=== PATIENT | female | born 1935 | race Caucasian/White ===

== ENCOUNTER → 2018-06-19 | Outpatient (CLI) | payer OTHER ==
[~2018-06-19] MED LIST: ADULT LOW DOSE81 MG PO; CALCIUM 500 +1 EAC5 PO; CALCIUM PO; CIPRO500 MG PO; CIPROFLOXACIN500 M1 PO; CRANBERRY TABL1 EACH PO; DAILY MULTIPLE1 EACH PO; FISH OIL 1,0001 EAC5 PO; FLAGYL500 MG PO; GLUCOPHAGE500 MG PO; GLUCOSAMINE HC500 MG PO; GLYBURIDE 5 MG T5 M1 PO; HYDROCODONE-AP1 EAC6 PO; IBUPROFEN 600600 M1 PO; IBUPROFEN 800800 M1 PO; LORTABELXR PO; MAGNESIUM OXID400 MG PO; MAGNESIUM100 MG PO; MOBIC15 MG PO; MSM1000 M1 PO; MULTIVITAMIN/IRON PO; SIMVASTATIN40 MG PO; TORADOL 10 MG T10 MG PO; VITAMIN D1000 UNI1 PO; VITAMIN D400 UNI1 PO; ZINC50 M1 PO; ZOFRAN ODT4 MG PO; ZPAK PO
[2018-06-19 09:00] LABS: CHOLESTEROL 160 mg/dL (<200); HDL CHOLESTEROL 52 mg/dL (>40); LDL CHOLESTEROL 72 mg/dL (<100); TC:HDL 3.1 Ratio (Not establshd); TRIGLYCERIDE 181 mg/dL (<150); VLDL 36 mg/dL (<40)
[2018-06-19 09:08] LABS: SERUM ASSESSMENT Clear
== END ==
LOC: M.LAB 08:12
PROVIDERS: Internal Medicine Cardiovascular Disease
DX: E78.00 Pure hypercholesterolemia, unspecified (principal); M19.90 Unspecified osteoarthritis, unspecified site; E11.9 Type 2 diabetes mellitus without complications

== ENCOUNTER → 2019-07-29 | Outpatient (CLI) | payer OTHER ==
[2019-07-29 09:42] LABS: CHOLESTEROL 137 mg/dL (<200); HDL CHOLESTEROL 47 mg/dL (>40); LDL CHOLESTEROL 59 mg/dL (<100); TC:HDL 2.9 Ratio (Not establshd); TRIGLYCERIDE 156 mg/dL (<150); VLDL 31 mg/dL (<40)
[2019-07-29 09:44] LABS: SERUM ASSESSMENT Clear
== END ==
LOC: M.LAB 09:13
PROVIDERS: Internal Medicine Cardiovascular Disease
DX: E78.00 Pure hypercholesterolemia, unspecified (principal)

== ENCOUNTER → 2021-08-23 | Outpatient (CLI) | payer OTHER ==
--- NOTE | 2021-08-23 14:25 | 2DMMODE ---
[place] [address] 2 D/M-MODE ECHOCARDIOGRAM Name: SEAN JOHN Room: [facility]#: [id number] Admission: 08/23/21 Attend Phys: Jens Felix, Discharge: Date of : 31 Date of Service: 08/23/21 1425 Report #: [id number] THIS REPORT FOR: cc: Traas Soliman John E. DO Blick,Elia Khan MD [facility] ~ APPROVED REPORT Study performed: 08/23/2021 12:10:10 EXAM: Comprehensive 2D, Doppler, and color-flow Echocardiogram Patient Location: Out-Patient BSA: 1.83 HR: 62 bpm BP: 125/70 mmHg Other Information Study Quality: Good Indications CVA/TIA Echo Enhancing Agent Comments: Was unable to start IV for Bubble Study. 5X 2D Dimensions IVSd: 11.23 (7-11mm) LVOT Diam: 20.39 (18-24mm) LVDd: 46.92 mm PWd: 9.65 (7-11mm) Ascending Ao: 32.58 (22-36mm) LVDs: 29.16 (25-40mm) Aortic Root: 31.86 mm Volumes Left Atrial Volume (Systole) LA ESV Index: 37.20 mL/m2 Aortic Valve AoV Peak Judson.: 1.89 m/s AO Peak Gr.: 14.36 mmHg LVOT Max P.23 mmHg AO Mean Gr.: 8.08 mmHg LVOT Mean P.90 mmHg LVOT Max V: 1.34 m/s AO V2 VTI: 38.52 cm LVOT Mean V: 0.93 m/s JOCELYN (VTI): 2.40 cm2 LVOT V1 VTI: 28.30 [place] [address] 2 D/M-MODE ECHOCARDIOGRAM Name: SEAN JOHN Room: [facility]#: [id number] Admission: 08/23/21 Attend Phys: Jens Felix, Discharge: Date of : 31 Date of Service: 08/23/21 1425 Report #: [id number] Mitral Valve MV Peak Gr.: 11.88 mmHg MV Mean Gr.: 6.08 mmHg E/A Ratio: 0.87 MV Decel. Time: 499.34 ms MV E Max Judson.: 1.41 m/s MV PHT: 144.81 ms MVA (PHT): 1.52 cm2 TDI E/Lateral E': 20.14 E/Medial E': 23.50 Medial E' Judson.: 0.06 m/s Lateral E' Judson.: 0.07 m/s Pulmonary Valve PV Peak Judson.: 0.88 m/s PV Peak Gr.: 3.10 mmHg Tricuspid Valve RAP Estimate: 5.00 mmHg TR Peak Gr.: 30.34 mmHg RVSP: 35.34 mmHg PA Pressure: 35.34 mmHg Left Ventricle The left ventricle is normal size. There is normal LV segmental wall motion. There is normal left ventricular wall thickness. Left ventricular systolic function is normal. The left ventricular ejection fraction is within the normal range. LVEF is 60-65%. Grade I - abnormal relaxation pattern. Right Ventricle The right ventricle is normal size. The right ventricular systolic function is normal. Atria Left atrium is mildly dilated. The right atrium size is normal. Aortic Valve Aortic valve is calcified. No aortic regurgitation is present. There is mild aortic valvular stenosis. Mitral Valve Moderate mitral annular calcification. The mitral valve is mildly thickened. mild mitral stenosis Mild mitral regurgitation[place] [address] 2 D/M-MODE ECHOCARDIOGRAM Name: SEAN JOHN Room: [facility]#: [id number] Admission: 08/23/21 Attend Phys: Jens Felix, Discharge: Date of : 31 Date of Service: 08/23/21 1425 Report #: [id number] Tricuspid Valve The tricuspid valve is normal in structure. Mild tricuspid regurgitation. estimated pa pressure 50 mm Hg Pulmonic Valve The pulmonary valve is normal in structure. There is no pulmonic valvular regurgitation. Great Vessels The aortic root is normal in size. IVC is normal in size and collapses >50% with inspiration. Pericardium There is no pericardial effusion. <Conclusion> LVEF is 60-65%. Left atrium is mildly dilated. There is mild aortic valvular stenosis. Mild mitral regurgitation. Moderate mitral annular calcification. The mitral valve is mildly thickened. mild mitral stenosis Mild tricuspid regurgitation. estimated pa pressure 50 mm Hg <ELECTRONICALLY SIGNED> By: Elia Quach MD, FACC 08/23/21 1425 1425 1425 Elia Quach MD, FACC /INF
== END ==
LOC: M.ULTRA 08-03 14:29
PROVIDERS: ATTEND Internal Medicine Cardiovascular Disease
DX: I08.3 Combined rheumatic disorders of mitral, aortic and tricuspid valves (principal); I65.23 Occlusion and stenosis of bilateral carotid arteries; I63.40 Cerebral infarction due to embolism of unspecified cerebral artery